=== PATIENT | male | born 2000 ===

== ENCOUNTER 2020-10-14 14:17 | Outpatient (RCR) | payer OTHER ==
[2020-10-20] MEDS ORDERED: CRUTCHES MC (19:35)
== END 2020-12-01 14:45 | disposition home or self-care (01) ==
LOC: WSOH 14:17
DX: L23.7 Allergic contact dermatitis due to plants, except food (principal); Y99.0 Civilian activity done for income or pay

== ENCOUNTER 2020-10-20 16:35 | Emergency (ER) | payer OTHER ==
[~2020-10-20] VITALS: Ht 185.4 cm; Wt 95.5 kg
[2020-10-20 16:48] VITALS: TEMP 98.7
[2020-10-20] MEDS ORDERED: CRUTCHES MC (19:35)
[2020-10-20 19:47] VITALS: BP 156/81; PULSE 85
== END 2020-10-20 19:51 | disposition home or self-care (01) ==
LOC: COL.ER 16:35
DX: S93.401A Sprain of unspecified ligament of right ankle, initial encounter (principal); F17.210 Nicotine dependence, cigarettes, uncomplicated; X50.1XXA Overexertion from prolonged static or awkward postures, initial encounter

== ENCOUNTER 2020-12-24 12:52 | Outpatient (RCR) | payer OTHER ==
[~2020-12-24 12:52] MED LIST: CRUTCHES MC
== END 2021-02-18 ==
LOC: WSOH
DX: S46.111A Strain of muscle, fascia and tendon of long head of biceps, right arm, initial encounter (principal); Y99.0 Civilian activity done for income or pay